=== PATIENT | female | born 1930 | race Caucasian/White ===

== ENCOUNTER 2019-12-06 15:43 | Emergency (ER) | payer MEDICARE, OTHER ==
[~2019-12-06] VITALS: Ht 157.5 cm; Wt 58.1 kg
[~2019-12-06 15:43] MED LIST: ATOR20TA PO; ENO40SY SC; HYDR-4833 PO; MOEX15TA4; WARF5TAB PO
[2019-12-06 15:56] VITALS: BP 130/88
[2019-12-06 17:56] LABS: Basophils # (auto) 0.1 uL; Eosinophils # (auto) 0.3 uL; Eosinophils % (auto) 3.7 % (0.0-7.0); Hemoglobin 14.1 g/dL (12.2-16.2); Monocytes # (auto) 0.6 uL; Monocytes % (auto) 8.4 % (0.0-12.0); Neutrophils # (auto) 4.9 uL
[2019-12-06 17:58] LABS: Basophils % (auto) 0.8 % (0.0-2.0); Hematocrit 41.9 % (36.0-46.0); Lymphocytes # (auto) 1.7 uL; Lymphocytes % (auto) 22.9 % (10.0-50.0); Mean Corpuscular Hemoglobin 31.8 pg (28.0-32.0); Mean Corpuscular Hgb Conc. 33.6 g/dL (32.0-36.0); Mean Corpuscular Volume 94.5 fL (80.0-100.0); Neutrophils % (auto) 64.2 % (37.0-80.0); Nucleated Red Blood Cells % 0.1 %; Platelet Count (auto) 581 10^3/uL (140-450); Red Blood Cells 4.43 10^6/uL (4.0-5.20); Red Cell Distribution Width 14.5 % (11.8-14.3); White Blood Cell 7.6 10^3/uL (4.4-10.8)
[2019-12-06 18:11] LABS: INR 0.98 (0.9-1.15)
[2019-12-06 18:15] LABS: Albumin 4.1 g/dL (3.4-5.0); Calcium 9.5 mg/dL (8.5-10.1); Potassium 5.3 mmol/L (3.5-5.1)
[2019-12-06 18:19] LABS: Bilirubin, Total 0.6 mg/dL (0.2-1.0); Total Protein 7.2 g/dL (6.4-8.2)
== END 2019-12-06 20:58 | disposition left against medical advice (07) ==
LOC: ER 15:45
DX: R53.1 Weakness (principal); R47.81 Slurred speech; Z53.21 Procedure and treatment not carried out due to patient leaving prior to being seen by health care provider
CPT/HCPCS: 36415; 70450; 71046; 80053; 85025; 85610; 85730; 93005; 93970